=== PATIENT | female | born 1960 | race Caucasian/White ===

== ENCOUNTER 2016-11-03 13:02 | Emergency (ER) | payer OTHER ==
[~2016-11-03] VITALS: Ht 165.1 cm; Wt 110.4 kg
[2016-11-03 13:07] VITALS: TEMP 36.7; Ht 165.1 cm; Wt 110.4 kg
[2016-11-03] MEDS ORDERED: OLAN-111 PO (13:48)
[2016-11-03] MEDS ORDERED: GABA-113 PO (13:48)
[2016-11-03] MEDS ORDERED: BACL10TA PO (13:48)
[2016-11-03] MEDS ORDERED: ONDA8TAB6 PO (13:48)
[2016-11-03] MEDS ORDERED: GLC/500 PO (13:48)
[2016-11-03] MEDS ORDERED: FLUO20CA35 PO (13:48)
[2016-11-03] MEDS ORDERED: METH10TA2 PO ×2 (13:48)
[2016-11-03] MEDS ORDERED: PANT40TA PO (13:48)
[2016-11-03] MEDS ORDERED: AMPH1TAB58 PO (13:48)
[2016-11-03] MEDS ORDERED: ALPR1TAB3 PO (13:48)
[2016-11-03] MEDS ORDERED: FRS/40 PO (13:48)
[2016-11-03] MEDS ORDERED: OXYC-164 PO (13:48)
[2016-11-03 15:19] LABS: BASO % 0.5 %; BASO ABS # 0.05 K/uL (0-0.2); COMPLETE YES; EOS % 2.9 %; HEMATOCRIT 44.7 % (37-47); IG% 0.1 %; LYMPH % 41.5 %; LYMPH ABS # 3.96 K/uL (1.2-3.4); MEAN CELL VOLUME 94.5 fL (80-100); MEAN CORPUSCULAR HEMOGLOBIN 31.9 pg (25-34); MEAN CORPUSCULAR HGB CONC 33.8 g/dl (32-36); MEAN PLATELET VOLUME 10.9 fL (7.4-10.4); MONO % 5.8 %; NEUT % 49.2 %; PLATELET COUNT 265 K/uL (130-400); RED BLOOD COUNT 4.73 M/uL (4.2-5.4); WHITE BLOOD COUNT 9.55 K/uL (4.8-10.8)
[2016-11-03 16:34] LABS: ALB/GLOB RATIO 0.8 (0.9-2); BUN/CREATININE RATIO 6.9 (10-20); CALCIUM 8.8 mg/dl (8.5-10.1); CREATININE 0.88 mg/dl (0.60-1.20); POTASSIUM 3.7 mmol/L (3.5-5.1)
[2016-11-03 16:46] LABS: BETA-HYDROXYBUTYRATE 2.05 mg/dL (0.2-2.81)
[2016-11-03 17:41] VITALS: BP 139/81; PULSE 82; O2SAT 94
--- NOTE | 2016-11-03 21:47 | EMERGENCY ROOM VISIT NOTE ---
History Report prepared by Tyson: Darlene Larson Under the Supervision of: Dr. Gurvinder Manuel M.D. First contact with patient: 13:42 Chief Complaint: WOUND INFECTION Stated Complaint: DIABETIC PT,BLISTER ON FEET Nursing Triage Summary: right great tor blister, right lower leg open blister, left heel blister, blanching spot beside blister. pt report taking clindamycin for 4 days. hx of diabetes. pt in town visiting brother History of Present Illness The patient is a 56 year old female who presents to the Emergency Room with complaints of persistent blisters on bilateral feet and right lower leg starting about a week ago. She started having a blister on her right lower leg about a month ago which healed. The patient was prescribed either Sulfa or Clindamycin at the time but she is not sure. About a week ago, she started having the blister on the right lower leg again. 2 days ago, she started having a small blister on the right great toe. Yesterday, she noticed a blister on the bottom of her left foot. She is unsure about the cause of the blisters. She was started on Clindamycin 3 days ago without relief. She has a history of diabetes. Her blood sugar level has been high recently. She states that she has been eating candy. The patient denies any history of issues with blisters. Pt denies LOC, headache, fevers, chills, diaphoresis, visual changes, neck pain, chest pain, breathing difficulties, nausea, vomiting, abdominal pain, back pain , melena, hematochezia, urinary symptoms, numbness, weakness, lymphadenopathy, rash, or other complaints. Source of History: patient Onset: about a week ago Position: leg (right lower), foot (bilateral) Quality: other (blisters) Timing: other (persistent) Modifying Factors (Relieving): other (Clindamycin without relief) Review of Systems See HPI for pertinent positives and negatives. A total of ten systems were reviewed and were otherwise negative. Past Medical & Surgical Medical Problems: (1) Diabetes (2) Fibromyalgia Family History Patient reports no known family medical history. Social History Smoking Status: Never Smoker Marital Status: single Housing Status: lives with family Occupation Status: unemployed Current/Historical Medications Scheduled Amphetamine-Dextroamphetamine 5MG (Adderall 5MG), 5 MG PO BID Baclofen (Lioresal), 10 MG PO TID Gabapentin (Neurontin), 300 MG PO TID Metformin Hcl (Glucophage), 500 MG PO HS Methadone Hcl (Dolophine), 30 MG PO NOON Methadone Hcl (Dolophine), 40 MG PO BID Olanzapine (Zyprexa), 5 MG PO HS Pantoprazole (Protonix), 40 MG PO BID Scheduled PRN Alprazolam (Xanax), 1 MG PO Q6H PRN for Anxiety Furosemide (Lasix), 40 MG PO DAILY PRN for PRN Ondansetron Hcl (Zofran), 8 MG PO Q6 PRN for Nausea Oxycodone Hcl (Oxycodone Hcl), 10 MG PO DIRECTED PRN for Pain Allergies Coded Allergies: Ibuprofen (Unverified Allergy, Unknown, RASH, 11/03/16) Penicillins (Unverified Allergy, Unknown, RASH, 11/03/16) Physical Exam Vital Signs Date Time Temp Pulse Resp B/P (MAP) Pulse Ox O2 Delivery O2 Flow Rate FiO2 11/03/16 17:41 82 18 139/81 94 11/03/16 16:28 86 18 119/66 92 Room Air 11/03/16 15:02 88 20 125/60 91 Room Air 11/03/16 13:07 36.7 101 18 152/84 93 Room Air Physical Exam GENERAL: Awake, alert, well-appearing, in no distress HENT: Normocephalic, atraumatic. Oropharynx unremarkable. EYES: Normal conjunctiva. Sclera non-icteric. NECK: Supple. No nuchal rigidity. FROM. No JVD. RESPIRATORY: Clear to auscultation. CARDIAC: Regular rate, normal rhythm. Extremities warm and well perfused. Pulses equal. ABDOMEN: Soft, non-distended. No tenderness to palpation. No rebound or guarding. No masses. RECTAL: Deferred. MUSCULOSKELETAL: Chest examination reveals no tenderness. The back is symmetrical on inspection without obvious abnormality. There is no CVA tenderness to palpation. No joint edema. LOWER EXTREMITIES: Calves are equal size bilaterally and non-tender. No edema. No discoloration. Blister to the left heel. Grade 2 ulcer on the right anterior distal viera. Small blister on the right great toe. NEURO: Normal sensorium. No sensory or motor deficits noted. SKIN: No rash or jaundice noted. Medical Decision & Procedures Laboratory Results 11/03/16 14:20 Red Blood Count 4.73, Mean Corpuscular Volume 94.5, Mean Corpuscular Hemoglobin 31.9, Mean Corpuscular Hemoglobin Concent 33.8, Mean Platelet Volume 10.9, Neutrophils (%) (Auto) 49.2, Lymphocytes (%) (Auto) 41.5, Monocytes (%) (Auto) 5.8, Eosinophils (%) (Auto) 2.9, Basophils (%) (Auto) 0.5, Neutrophils # (Auto) 4.70, Lymphocytes # (Auto) 3.96, Monocytes # (Auto) 0.55, Eosinophils # (Auto) 0.28, Basophils # (Auto) 0.05 11/03/16 14:20 Test 11/03/16 14:20 White Blood Count 9.55 K/uL (4.8-10.8) Red Blood Count 4.73 M/uL (4.2-5.4) Hemoglobin 15.1 g/dL (12.0-16.0) Hematocrit 44.7 % (37-47) Mean Corpuscular Volume 94.5 fL (80-100) Mean Corpuscular Hemoglobin 31.9 pg (25-34) Mean Corpuscular Hemoglobin Concent 33.8 g/dl (32-36) Platelet Count 265 K/uL (130-400) Mean Platelet Volume 10.9 fL (7.4-10.4) Neutrophils (%) (Auto) 49.2 % Lymphocytes (%) (Auto) 41.5 % Monocytes (%) (Auto) 5.8 % Eosinophils (%) (Auto) 2.9 % Basophils (%) (Auto) 0.5 % Neutrophils # (Auto) 4.70 K/uL (1.4-6.5) Lymphocytes # (Auto) 3.96 K/uL (1.2-3.4) Monocytes # (Auto) 0.55 K/uL (0.11-0.59) Eosinophils # (Auto) 0.28 K/uL (0-0.5) Basophils # (Auto) 0.05 K/uL (0-0.2) RDW Standard Deviation 43.2 fL (36.4-46.3) RDW Coefficient of Variation 12.5 % (11.5-14.5) Immature Granulocyte % (Auto) 0.1 % Immature Granulocyte # (Auto) 0.01 K/uL (0.00-0.02) Anion Gap 9.0 mmol/L (3-11) Est Creatinine Clear Calc Drug Dose 89.4 ml/min Estimated GFR () 85.7 Estimated GFR (Non- 74.0 BUN/Creatinine Ratio 6.9 (10-20) Calcium Level 8.8 mg/dl (8.5-10.1) Total Bilirubin 0.6 mg/dl (0.2-1) Aspartate Amino Transf (AST/SGOT) 62 U/L (15-37) Alanine Aminotransferase (ALT/SGPT) 67 U/L (12-78) Alkaline Phosphatase 95 U/L (45-117) Total Protein 7.2 gm/dl (6.4-8.2) Albumin 3.1 gm/dl (3.4-5.0) Globulin 4.1 gm/dl (2.5-4.0) Albumin/Globulin Ratio 0.8 (0.9-2) Beta-Hydroxybutyric Acid 2.05 mg/dL (0.2-2.81) Laboratory results reviewed by pr ED Course 1342: The patient was evaluated in room A03. A complete history and physical exam was performed. Medication Reconciliation: I attest that I have personally reviewed the patient' s current medication list Blood pressure screening: Patient was found to have an elevated blood pressure and was referred to their primary doctor for recheck and further treatment. 1518: I discussed the patient's case with Dr. Caraballo, with the [facility]. 1625: I reevaluated the patient. I aspirated the left heel blister and a culture was obtained. Discussed results and discharge instructions: She verbalized understanding and agreement. She has an appointment set up with the Wound Care Clinic. The patient is ready for discharge. Medical Decision Triage Nursing notes reviewed. The patient's presentation and history were concerning for blisters and ulcers on the feet Etiologies such as diabetic ulcer, blisters, cellulitis, abscess, MRSA infection , dermatitis, drug eruption,necrotizing fasciitis, DVT as well as others were entertained. The patient was evaluated. She has an ongoing wound in the right lower viera. She is diabetic. The patient had a unremarkable CBC and chemistry panel except for hyperglycemia. She noted a lot of pain in the left heel under the blister. I initially recommended conservative management that she noted moderate pain and I did offer to drain the heel blister and culture this area. She is currently taking clindamycin. There is no clear evidence of cellulitis. The patient had the wound on the right leg and the fluid on the left heel cultured. She will continue her clindamycin. I did discuss her issue with the wound center and the patient will be followed up as she is going to be here for the next few weeks. I did talk to the patient about her diet given her hyperglycemia. The patient admitted to eating a lot of candy. She was counseled on this. If she worsens in any way she will come back to the emergency department. The patient is on chronic pain medication and therefore additional analgesics were not prescribed. this seems to be most consistent with a diabetic ulcer and functional blisters. The [facility]. If she worsens in any way she will be back. Consults Time Called: 1509 Consulting Physician: Dr. Caraballo, with the [facility]ound [facility] Returned Call: [phone] I discussed the patient's case with Dr. Caraballo, with the [facility]ound [facility]. Impression Primary Impression: Diabetic ulcer of both feet Additional Impressions: Blister of left heel Hyperglycemia Scribe Attestation The scribe's documentation has been prepared under my direction and personally reviewed by me in its entirety. I confirm that the note above accurately reflects all work, treatment, procedures, and medical decision making performed by me. Departure Information Dispostion Home / Self-Care Referrals No Doctor, Assigned (PCP) Forms HOME CARE DOCUMENTATION FORM, IMPORTANT VISIT INFORMATION, WORK / SCHOOL INSTRUCTIONS Patient Instructions My [facility] Additional Instructions Continue current medications. WOUND CARE INSTRUCTIONS: Bacitracin to wounds once daily. Use a non-stick dressing such as a large band-aid. Change the dressings once a day. Allow your wounds to air dry several hours per day when you are resting, but it is a good idea to keep them covered while sleeping to prevent irritation and the sheets sticking to the wound. Apply direct pressure for any bleeding. Return to the ER immediately for spreading redness, fevers, pus-like drainage, severe pain, or as needed. Follow-up with the wound clinic on Sunday. Call the [facility] for Wound Care at [phone]. Tell them you were in the ER and we want you to have your wound evaluated. Problem Qualifiers
--- NOTE | 2016-11-06 12:15 | Pharmacy Progress Note ---
ED Pharmacist Culture FollowUp Date of Service: Nov 06, 2016. Patient's surface wound cx from foot ulcer on 11/03/16 is growing 2 organisms: Grp B Strep and CoN Staph The patient had been taking Clindamycin at the time of the ER visit and she was to continue taking on discharge. The GBS is resistant to Clindamycin and Dr Acevedo has requested the patient be started on Omnicef 300mg PO BID x 7 days based upon C&S results. I did speak with the wound clinic today who stated the patient's mother had contacted them today and she was trying to arrange an appointment. I asked the office staff to print out the culture results for the provider who would be seeing the patient and requested she pass on the message that the ER will be placing the patient on Omnicef. I then contacted the patient's mother, lEisa, at her phone # [phone] as we were unable to contact the patient w/ the ph# provided. The patient was at her mother's place and I explained the culture results and the need for Omnicef. She requested I call the Rx to [facility] pharmacy located within [facility] on [address] ([phone]). I did phone Rx to this pharmacy per her request.
== END 2016-11-03 17:43 | disposition home or self-care (01) ==
LOC: C.EDB 13:03 → C.EDA 17:43
DX: E11.621 Type 2 diabetes mellitus with foot ulcer (principal); S90.822A Blister (nonthermal), left foot, initial encounter; X58.XXXA Exposure to other specified factors, initial encounter; E11.65 Type 2 diabetes mellitus with hyperglycemia; M79.7 Fibromyalgia; Z79.899 Other long term (current) drug therapy